=== PATIENT | male | born 1990 | race American Indian/Alaskan Native ===

== ENCOUNTER 2018-08-23 11:05 | Emergency (ER) | payer OTHER ==
[2018-08-23 11:14] VITALS: BP 132/69
--- NOTE | 2018-08-23 12:41 | Emergency Department Report ---
ED Back Pain/Injury HPI - General Chief Complaint: Back Pain/Injury Stated Complaint: BACK PAIN/INJURY Source: patient Mode of arrival: Ambulatory Limitations: No Limitations - History of Present Illness Initial Comments: This is an 27-year-old -[place] male who presents to the emergency room with low back pain for 2 weeks. 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 He denies change in urination or bowel movement, urinary frequency, urgency, dysuria, swelling, paresthesias, weakness, or radiating pain Complaint: back pain Onset/Timin -: week(s) Similar Symptoms Previously: No Place: work Radiation: none Severity: moderate Severity scale (0 -10): 5 Quality: aching Consistency: intermittent Improves With: none Worsens With: movement Associated Symptoms: denies: numbness, difficulty urinating, incontinence, fever/chills Treatments Prior to Arrival: NSAIDS - Related Data Previous Rx's Medication Instructions Recorded Last Taken Type Naproxen [Naprosyn] 500 mg PO TID PRN #20 tablet 08/23/18 Unknown Rx Allergies Allergy/AdvReac Type Severity Reaction Status Date / Time No Known Allergies Allergy Unverified 08/23/18 11:10 ED Review of Systems ROS: Stated complaint: BACK PAIN/INJURY Other details as noted in HPI Constitutional: denies: chills, fever Respiratory: denies: cough, shortness of breath, wheezing Cardiovascular: denies: chest pain, palpitations Gastrointestinal: denies: abdominal pain, nausea, diarrhea Musculoskeletal: back pain. denies: joint swelling, arthralgia Skin: denies: rash, lesions Neurological: denies: headache, weakness, paresthesias Psychiatric: denies: anxiety, depression ED Back Pain Physical Exam - Exam General: Vital signs noted. No distress. Alert and acting appropriately. Back/Abdomen: Yes Sacroiliac Tenderness, No Abdominal Tenderness, No Perithoracic Tenderness, No Perilumbar Tenderness, No Flank Tenderness, No Straight Leg Raise Pain Neuro: Yes Normal Sensation, Yes Normal DTR's, Yes Normal Gait, No Motor Weakness ED Course Vital Signs 08/23/18 11:10 Temperature 98.2 F Pulse Rate 57 L Respiratory 18 Rate Blood Pressure 132/69 O2 Sat by Pulse 99 Oximetry Ed Back Pain Tests - Tests Tests: Normal X Rays ED Medical Decision Making - Radiology Data Radiology results: report reviewed EXAM: XR SPINE LUMBOSACRAL 2-3V HISTORY: low back pain TECHNIQUE: 3 views COMPARISON: None available. FINDINGS: No vertebral fracture, bony erosion, or sclerosis is identified. There is no gross malalignment, spondylolisthesis, or retrolisthesis seen. The intravertebral disc spaces are preserved. No evidence for significant degenerative disease is seen. The pedicles are intact throughout. There is no paraspinal soft tissue mass seen. IMPRESSION: 1. Unremarkable lumbar spine x-ray series. - Medical Decision Making Patient was examined by me. Vitals are normal and patient is in no acute distress. Obtained a x-ray of L-spine. X-rays dictated by radiologist and report reviewed by myself. Unremarkable lumbar spine x-ray series. Denies ringing or frequency, urgency, dysuria, testicular enlargement or pain. There is no concerns of urinary tract infection or urethritis. Findings susceptible of muscle strain. Patient informed of results. Start naproxen for pain. Plan discussed with patient to discharge home and treat outpatient. He agrees with ER plan. Patient discharged home in stable condition. Follow up with PCP in 2-3 days. Critical care attestation.: If time is entered above; I have spent that time in minutes in the direct care of this critically ill patient, excluding procedure time. ED Disposition Clinical Impression: Strain of muscle, fascia and tendon of lower back, initial encounter Low back pain Qualifiers: Chronicity: acute Back pain laterality: bilateral Sciatica presence: without sciatica Qualified Code(s): M54.5 - Low back pain Disposition: TO HOME OR SELFCARE Is pt being admited?: No Does the pt Need Aspirin: No Condition: Stable Instructions: Muscle Strain (ED), Core Strengthening Exercises (GEN) Additional Instructions: Rest Use ice or heat on affected area for 20 minutes and off for 2 hours. Take pain medication three times a day as needed for pain. Follow up with Primary Care Provider in 2-3 days. Prescriptions: Naproxen [Naprosyn] 500 mg PO TID PRN #20 tablet PRN Reason: Pain , Severe (7-10) Referrals: [facility] [Provider Group] - 3-5 Days [facility], [Provider Group] - 3-5 Days [facility] [Provider Group] - 3-5 Days INOCENCIA XIE MD [Staff Physician] - 3-5 Days Forms: Work/School Release Form(ED) Time of Disposition: 13:42
--- NOTE | 2018-08-23 13:23 | XRay Report ---
EXAM: XR SPINE LUMBOSACRAL 2-3V HISTORY: low back pain TECHNIQUE: 3 views COMPARISON: None available. FINDINGS: No vertebral fracture, bony erosion, or sclerosis is identified. There is no gross malalignment, spon dylolisthesis, or retrolisthesis seen. The intravertebral disc spaces are preserved. No evidence for significant degenerative disease is se en. The pedicles are intact throughout. There is no paraspinal soft tissue mass seen. IMPRESSION: 1. Unremarkable lumbar spine x-ray series. This document is electronically signed by Randolph Coelho MD., August 23 2018 01:21:16 PM ET
== END 2018-08-23 14:11 | disposition home or self-care (01) ==
LOC: ED 11:05
DX: S39.012A Strain of muscle, fascia and tendon of lower back, initial encounter (principal); X58.XXXA Exposure to other specified factors, initial encounter; Y93.89 Activity, other specified; Y92.89 Other specified places as the place of occurrence of the external cause; Y99.8 Other external cause status
CPT/HCPCS: 72100